=== PATIENT | female | born 1950 | race African-American/Black ===

== ENCOUNTER 2018-07-11 18:58 | Emergency (ER) | payer OTHER ==
--- NOTE | 2018-07-11 19:09 | PDOC ---
Rapid Medical Evaluation Chief Complaint: Chest Pain Medical Evaluation: Allergies Allergy/AdvReac Type Severity Reaction Status Date / Time No Known Allergies Allergy Verified 08/12/13 08:52 07/11/18 19:01 I have performed a brief in-person evaluation of this patient. The patient presents with a chief complaint of: CP intermittant since AM, stabbing with SOB, increasing/ worsening over past few months. non-productive cough with no fevers Pertinent physical exam findings:amb / holding head I have ordered the following: EkG done , CbC, CMP, Card profile The patient will proceed to the ED for further evaluation. 07/11/18 19:09 07/11/18 19:14 Discharge Disposition - Diagnosis Chest pain - Discharge Dispostion Disposition: HOME Condition at time of disposition: Poor - Referrals - Patient Instructions - Post Discharge Activity
[2018-07-11 19:15] VITALS: BP 128/42; PULSE 63; TEMP 97.9; BMI 25.7
[2018-07-11 19:45] LABS: URINE APPEARANCE CLEAR; URINE BILIRUBIN NEGATIVE (<2.0 mg/dL); URINE COLOR STRAW; URINE GLUCOSE (UA) NEGATIVE (NEGATIVE); URINE KETONE NEGATIVE (NEGATIVE); URINE LEUK ESTERASE NEGATIVE (NEGATIVE); URINE NITRITE NEGATIVE (NEGATIVE); URINE PROTEIN NEGATIVE (NEGATIVE); URINE UROBILINOGEN NEGATIVE mg/dL (0.2-1.0)
--- NOTE | 2018-07-11 19:55 | PDOC ---
Attending Attestation - HPI HPI: 07/11/18 20:04 The patient is a 68 year old female with a significant past medical history of HTN, HLD, who presents to the emergency department today complaining of 24 hours of intermittent chest pain, which she describes as stabbing that resolves quickly. She notes increased SOB over the last few months. Patient reports a recent trip to [facility] with return on 06/22/18. The patient denies headache and dizziness. Denies fever, chills, nausea, vomit, diarrhea and constipation. Denies dysuria, frequency, urgency and hematuria. Allergies: NKA Past surgical history: Hysterectomy Social history: No reported PCP: Dr. Granados <Neli Martines - Last Filed: 07/11/18 20:04> - Resident Resident Name: Zander Nayak - ED Attending Attestation I have performed the following: I have examined & evaluated the patient, The case was reviewed & discussed with the resident, I agree w/resident's findings & plan, Exceptions are as noted - Physicial Exam PE: 07/11/18 22:29 Agree with exam as documented by resident - Medical Decision Making 07/11/18 22:29 Atypical chest px, consider acs, arrhythmia, msk, progression of chronic disease f/u labs including trops cxr, ekg Cr 1.5 otherwise no acute abnormalities requiring intervention. Pt refused fluid hydration will follow up with pcp and following specialists <Zander Nayak - Last Filed: 07/11/18 22:31> Attestations - Attestations 07/11/18 20:04 Documentation prepared by Neli Martines, acting as regional medical director for Zander Nayak MD. <Neli Martines - Last Filed: 07/11/18 20:04>
[2018-07-11 20:25] LABS: BASO % 1.3 % (0-2.0); EOS % 1.6 % (0-4.5); HEMATOCRIT 37.7 % (32.4-45.2); LYMPH % 53.7 % (8-40); MCH 29.4 pg (25.7-33.7); MCHC 34.5 g/dl (32.0-36.0); MEAN CELL VOLUME 85.4 fl (80-96); MEAN PLT VOLUME 8.9 fl (7.5-11.1); MONO % 12.9 % (3.8-10.2); NEUT % 30.5 % (42.8-82.8); PLATELET COUNT 170 K/MM3 (134-434); RBC 4.41 M/mm3 (3.60-5.2); RDW 14.9 % (11.6-15.6); WHITE BLOOD COUNT 3.6 K/mm3 (4.0-10.0)
[2018-07-11 20:38] LABS: INR 0.97 (0.83-1.09); PROTHROMBIN TIME (PATIENT) 11.5 SEC (9.7-13.0)
--- NOTE | 2018-07-11 20:46 | PDOC ---
History of Present Illness - General Chief Complaint: Chest Pain Stated Complaint: CHEST PAINS Time Seen by Provider: 07/11/18 19:31 History Source: Patient Exam Limitations: No Limitations - History of Present Illness Initial Comments: 07/11/18 20:40 Patient is a 68F with history of HTN, HLD, ?pulmonary HTN (being worked up as outpatient) here today complaining of chest pain that started yesterday. She describes the pain as a stabbing intermittient pain that lasts 1-3 minutes at a time. She has associated shortness of breath, but unchanged over the past several months. Patient has no modifying or relieving factors to her pain. No leg swelling, history of blood clots, recent travel. Has outpatient hopper filler in Dr Chaparro at [facility] with follow up schedules for 07/18. Past History - Past Medical History Allergies/Adverse Reactions: Allergies Allergy/AdvReac Type Severity Reaction Status Date / Time No Known Allergies Allergy Verified 08/12/13 08:52 Home Medications: Ambulatory Orders Amlodipine Besylate [Norvasc] 5 mg PO DAILY 08/17/12 Aspirin [ASA] 81 mg PO DAILY 08/17/12 Atorvastatin Calcium [Lipitor] 20 mg PO DAILY 07/11/18 Carvedilol [Coreg -] 25 mg PO DAILY 07/11/18 Indapamide [Lozol -] 2.5 mg PO DAILY 07/11/18 Irbesartan [Avapro] 150 mg PO ASDIR 07/11/18 Losartan Potassium [Cozaar] 100 mg PO DAILY 07/11/18 Montelukast Na [Singulair -] 10 mg PO HS 07/11/18 Anemia: No Asthma: No Cancer: No Cardiac Disorders: Yes (arrythmia,) COPD: No Diabetes: No HTN: Yes Hypercholesterolemia: Yes - Surgical History Abdominal Surgery: Yes - Suicide/Smoking/Psychosocial Hx Smoking Status: No Smoking History: Never smoked Number of Cigarettes Smoked Daily: 0 Hx Alcohol Use: No Drug/Substance Use Hx: No Substance Use Type: None Review of Systems - Review of Systems Comments:: 07/11/18 20:46 GENERAL/CONSTITUTIONAL: No fever or chills. No weakness. HEAD, EYES, EARS, NOSE AND THROAT: No change in vision. No sore throat. CARDIOVASCULAR: +chest pain +shortness of breath RESPIRATORY: No cough, wheezing, or hemoptysis. GASTROINTESTINAL: No nausea, vomiting, diarrhea or constipation. GENITOURINARY: No dysuria, frequency, or change in urination. MUSCULOSKELETAL: No joint or muscle swelling or pain. No neck or back pain. SKIN: No rash NEUROLOGIC: No headache, vertigo, loss of consciousness, or change in strength/ sensation. HEMATOLOGIC/LYMPHATIC: No anemia, easy bleeding, or history of blood clots. ALLERGIC/IMMUNOLOGIC: No hives or skin allergy. *Physical Exam - Vital Signs Last Vital Signs Temp Pulse Resp BP Pulse Ox 97.9 F 63 16 128/42 L 99 07/11/18 19:08 07/11/18 19:08 07/11/18 19:08 07/11/18 19:08 07/11/18 19:08 - Physical Exam Comments: 07/11/18 20:46 GENERAL: Awake, alert, and fully oriented, in no acute distress HEAD: No signs of trauma, normocephalic, atraumatic EYES: PERRLA, EOMI, sclera anicteric, conjunctiva clear ENT: Auricles normal inspection, hearing grossly normal, nares patent, oropharynx clear without exudates. Moist mucosa NECK: Normal ROM, supple, no lymphadenopathy, JVD, or masses LUNGS: No distress, speaks full sentences, clear to auscultation bilaterally HEART: Regular rate and rhythm, normal S1 and S2, no murmurs, rubs or gallops, peripheral pulses normal and equal bilaterally. ABDOMEN: Soft, nontender, normoactive bowel sounds. No guarding, no rebound. No masses EXTREMITIES: Normal inspection, Normal range of motion, no edema. No clubbing or cyanosis. NEUROLOGICAL: Cranial nerves II through XII grossly intact. Normal speech, normal gait, no focal sensorimotor deficits SKIN: Warm, Dry, normal turgor, no rashes or lesions noted. Moderate Sedation - Procedure Monitoring Vital Signs: Procedure Monitoring Vital Signs Temperature 97.9 F 07/11/18 19:08 Pulse Rate 63 07/11/18 19:08 Respiratory Rate 16 07/11/18 19:08 Blood Pressure 128/42 L 07/11/18 19:08 O2 Sat by Pulse Oximetry (%) 99 07/11/18 19:08 ED Treatment Course - LABORATORY CBC & Chemistry Diagram: 07/11/18 20:13 07/11/18 20:13 - ADDITIONAL ORDERS Additional order review: Laboratory Results 07/11/18 07/11/18 20:13 19:18 PT with INR 11.50 INR 0.97 Urine Color Straw Urine Appearance Clear Urine pH 5.0 Ur Specific [place] 1.008 L Urine Protein Negative Urine Glucose (UA) Negative Urine Ketones Negative Urine Blood Negative Urine Nitrite Negative Urine Bilirubin Negative Urine Urobilinogen Negative Ur Leukocyte Esterase Negative 07/11/18 20:13 RBC 4.41 MCV 85.4 MCHC 34.5 RDW 14.9 MPV 8.9 Neutrophils % 30.5 L D Lymphocytes % 53.7 H D Monocytes % 12.9 H D Eosinophils % 1.6 D Basophils % 1.3 - RADIOLOGY Radiology Studies Ordered: Category Date Time Status CHEST PA & LAT [RAD] Stat Radiology 07/11/18 19:48 Ordered Medical Decision Making - Medical Decision Making 07/11/18 20:46 Patient is a 68F with history of HTN, HLD, pulmonary htn? here today with chest pain, atypical. Vitals normal and stable. Patient has outpatient cards follow up. DDx includes but is not limited to: acs, arrhythmia, pulm htn. PE considered , not consistent with presentation. Vitals normal and stable. Will evaluate with cardiac workup, likely discharge to outpatient follow up. 07/11/18 21:55 EKG shows normal sinus rhythm with rate of 61. No st elevations/depressions. Normal axis. Normal intervals. No t wave abnormalities. CBC shows mild leukopenia, otherwise normal. Similar to prior CBCs. CMP shows mild LORAINE. Instructed to hydrate and follow up with primary care doctor. Given return precautions, will follow up with her hopper filler. *DC/Admit/Observation/Transfer Diagnosis at time of Disposition: Chest pain - Discharge Dispostion Disposition: HOME Condition at time of disposition: Good Decision to Admit order: No - Referrals Referrals: Constantine Granados MD [Primary Care Provider] - - Patient Instructions Printed Discharge Instructions: DI for Chest Pain Additional Instructions: Your Cr was 1.5 and BUN 33 today. Please follow up with your primary care doctor. Please follow up with your hopper filler this week. Please return if you have any new, worsening or concerning symptoms, especially fever, shortness of breath and increasing pain. - Post Discharge Activity
[2018-07-11 20:58] LABS: ALBUMIN 3.9 g/dl (3.4-5.0); ALK PHOS 53 U/L (45-117); ANION GAP 7 MMOL/L (8-16); BILIRUBIN,TOTAL 0.4 mg/dL (0.2-1); BLOOD UREA NITROGEN 33 mg/dL (7-18); CALCIUM 8.7 mg/dL (8.5-10.1); CHLORIDE 100 mmol/L (98-107); CO2 31 mmol/L (21-32); CREATININE 1.5 mg/dL (0.55-1.3); GLUCOSE,RANDOM 92 mg/dL (74-106); MAGNESIUM 2.3 mg/dL (1.8-2.4); SGOT/AST 32 U/L (15-37); SGPT/ALT 22 U/L (13-61); SODIUM 139 mmol/L (136-145); TOT PROT 7.2 g/dl (6.4-8.2)
[2018-07-11] MEDS ORDERED: SODIUM CHLORIDE 1,000 ML IV STA (21:47)
--- NOTE | 2018-07-12 11:57 | EKG ---
Test Reason : Blood Pressure : / mmHG Vent. Rate : 061 BPM Atrial Rate : 061 BPM P-R Int : 150 ms QRS Dur : 084 ms QT Int : 430 ms P-R-T Axes : 078 056 063 degrees QTc Int : 432 ms NORMAL SINUS RHYTHM NORMAL ECG WHEN COMPARED WITH ECG OF 17-AUG-2012 22:12, NO SIGNIFICANT CHANGE WAS FOUND Confirmed by KIM IBRAHIM MD ([id number]) on 07/12/2018 11:57:23 AM Referred By: Confirmed By:KIM IBRAHIM MD
== END 2018-07-11 22:12 | disposition home or self-care (01) ==
LOC: JER 18:58
PROC: 3E0337Z Introduction of Electrolytic and Water Balance Substance into Peripheral Vein, Percutaneous Approach (ICD-10-PCS; principal; 2018-07-11)
DX: R07.9 Chest pain, unspecified (principal); I10 Essential (primary) hypertension; E78.5 Hyperlipidemia, unspecified
CPT/HCPCS: 36415; 71046-TC-FY; 80053; 81003; 82550; 83735; 84484; 85025; 85610; 93005; 93010; 99284-25; J7030